=== PATIENT | female | born 1950 | race Caucasian/White ===

== ENCOUNTER 2019-07-25 19:53 | Emergency (ER) | payer MEDICAID ==
[~2019-07-25] VITALS: Ht 165.1 cm; Wt 109.1 kg
--- NOTE | 2019-07-25 20:18 | NUR ---
SPOKE WITH KIM JOE RN AND EMMA SHEETS ABOUT PT FINDINGS DURING TRIAGE. VERBAL ORDER GIVEN BY EMMA FOR CEYX. ORDER PLACED.
[2019-07-25 21:36] LABS: BASOPHILS # (AUTO) 0.1 X10'3 (0-0.2); BASOPHILS % (AUTO) 1.1 % (0-1); EOSINOPHILS # (AUTO) 0.7 X10'3 (0-0.9); EOSINOPHILS % (AUTO) 8.7 % (0-6); HEMATOCRIT 42.7 % (35.0-45.0); HEMOGLOBIN 14.6 g/dl (12.0-16.0); LYMPHOCYTES # (AUTO) 2.2 X10'3 (1.1-4.8); LYMPHOCYTES % (AUTO) 26.4 % (21-51); MEAN CORPUSCULAR HGB CONC 34.1 g/dL (33.0-36.5); MEAN CORPUSCULAR VOLUME 93.7 FL (78-98); MONOCYTES # (AUTO) 0.6 X10'3 (0-0.9); MONOCYTES % (AUTO) 7.2 % (2-12); NEUTROPHILS # (AUTO) 4.8 X10'3 (1.8-7.7); NEUTROPHILS % (AUTO) 56.6 % (42-75); PLATELET COUNT 235 X10'3 (140-440); RED BLOOD COUNT 4.56 X10'6 (4.20-5.60); RED CELL DISTRIBUTION WIDTH 13.2 % (11.5-14.5); WHITE BLOOD COUNT 8.5 X10'3 (4.5-11.0)
[2019-07-25 21:48] LABS: ALANINE AMINOTRANSFERASE 27 U/L (12-78); ALBUMIN 4.1 G/DL (3.4-5.0); ALBUMIN/GLOBULIN RATIO 1.2 (1.1-1.5); ALKALINE PHOSPHATASE 73 IU/L (46-116); ANION GAP 5 (8-16); ASPARTATE AMINO TRANSFERASE 22 U/L (10-37); BILIRUBIN,TOTAL 0.3 MG/DL (0.1-1.0); BLOOD UREA NITROGEN 16 MG/DL (7-18); BUN/CREATININE RATIO 14.7 (6.6-38.0); CALCIUM 9.3 MG/DL (8.5-10.1); CHLORIDE 109 MMOL/L (99-107); CREATININE 1.09 MG/DL (0.40-0.90); GLUCOSE 106 MG/DL (70-104); LIPASE 116 U/L (73-393); POTASSIUM 4.2 MMOL/L (3.5-5.1); SODIUM 145 MMOL/L (135-145); TOTAL CARBON DIOXIDE 30.9 MMOL/L (24-32); TOTAL PROTEIN 7.4 G/DL (6.4-8.2); eGFR 50 ML/MIN
[2019-07-25 23:13] LABS: CLARITY,URINE CLEAR (Clear); COLOR,URINE YELLOW (Yellow); GLUCOSE, URINE NEGATIVE (Neg); KETONES,URINE NEGATIVE (Neg); LEUKOCYTE ESTERASE ,URINE NEGATIVE (Neg); NITRITES, URINE NEGATIVE (Neg); OCCULT BLOOD,URINE NEGATIVE (Neg); PH,URINE 6.5 (4.8-8.0); PROTEIN,URINE NEGATIVE (Neg); UROBILINOGEN,URINE 0.2 E.U/dL (0.2-1.0)
[2019-07-25 23:25] LABS: UA COLLECTION TYPE CLN CATCH MIDSTREAM
[2019-07-26 01:28] VITALS: BP 126/82
== END 2019-07-25 23:48 | disposition home or self-care (01) ==
LOC: ER 19:54
DX: R25.1 Tremor, unspecified (principal); Z88.1 Allergy status to other antibiotic agents
CPT/HCPCS: 36415; 70450; 80053; 81003; 83690; 85025; 85610; 99284

== ENCOUNTER 2020-03-21 17:07 | Emergency (ER) | payer MEDICARE, MEDICAID ==
[~2020-03-21] VITALS: Ht 165.1 cm; Wt 109.0 kg
[~2020-03-21 17:07] MED LIST: HYDR-4383 PO
[2020-03-21] MEDS ORDERED: methylPREDNISolone sod succ 125mg/2ml vial IV ONE (17:35)
[2020-03-21] MEDS ORDERED: fluconazole-Diflucan 100MG/NS 50 ML IV ONE (17:35)
[2020-03-21] MEDS ORDERED: normal saline 1000ML IV soln IVB ONE (17:35)
[2020-03-21 18:18] LABS: BASOPHILS # (AUTO) 0.1 X10'3 (0-0.2); BASOPHILS % (AUTO) 0.9 % (0-1); EOSINOPHILS # (AUTO) 0.3 X10'3 (0-0.9); EOSINOPHILS % (AUTO) 4.5 % (0-6); HEMATOCRIT 43.9 % (35.0-45.0); HEMOGLOBIN 14.9 g/dl (12.0-16.0); LYMPHOCYTES # (AUTO) 1.8 X10'3 (1.1-4.8); LYMPHOCYTES % (AUTO) 27.6 % (21-51); MEAN CORPUSCULAR HEMOGLOBIN 32.2 PG (27.0-31.0); MEAN CORPUSCULAR HGB CONC 33.9 g/dL (33.0-36.5); MEAN PLATELET VOLUME 7.7 FL (7.4-10.4); MONOCYTES # (AUTO) 0.6 X10'3 (0-0.9); MONOCYTES % (AUTO) 8.5 % (2-12); NEUTROPHILS # (AUTO) 3.9 X10'3 (1.8-7.7); NEUTROPHILS % (AUTO) 58.5 % (42-75); PLATELET COUNT 238 X10'3 (140-440); RED BLOOD COUNT 4.61 X10'6 (4.20-5.60); RED CELL DISTRIBUTION WIDTH 13.4 % (11.5-14.5); WHITE BLOOD COUNT 6.7 X10'3 (4.5-11.0)
[2020-03-21 18:33] LABS: ALANINE AMINOTRANSFERASE 44 U/L (12-78); ALBUMIN/GLOBULIN RATIO 1.1 (1.1-1.5); ALKALINE PHOSPHATASE 77 IU/L (46-116); ANION GAP 7 (8-16); ASPARTATE AMINO TRANSFERASE 28 U/L (10-37); BILIRUBIN,TOTAL 0.6 MG/DL (0.1-1.0); BLOOD UREA NITROGEN 11 MG/DL (7-18); BUN/CREATININE RATIO 10.5 (6.6-38.0); CHLORIDE 111 MMOL/L (99-107); CREATININE 1.05 MG/DL (0.40-0.90); GLUCOSE 135 MG/DL (70-104); SODIUM 145 MMOL/L (135-145); TOTAL CARBON DIOXIDE 26.7 MMOL/L (24-32); TOTAL PROTEIN 7.8 G/DL (6.4-8.2); eGFR 52 ML/MIN
[2020-03-21] MEDS ORDERED: FLUC10SU PO (19:16)
[2020-03-21 20:04] VITALS: BP 196/86
== END 2020-03-21 20:15 | disposition home or self-care (01) ==
LOC: ER 17:08
DX: B37.0 Candidal stomatitis (principal); Z90.710 Acquired absence of both cervix and uterus; Z79.899 Other long term (current) drug therapy; Z88.1 Allergy status to other antibiotic agents; Z86.73 Personal history of transient ischemic attack (TIA), and cerebral infarction without residual deficits
CPT/HCPCS: 36415; 71045; 80053; 85025; 93005; 96365; 99285; J1450; J7030

== ENCOUNTER 2020-10-22 12:04 | Emergency (ER) | payer MEDICARE, MEDICAID ==
[~2020-10-22] VITALS: Ht 165.1 cm; Wt 109.1 kg
[2020-10-22 12:38] VITALS: BP 173/86
[2020-10-22] MEDS ORDERED: acetaminophen 325mg tablet PO ONE (14:10)
[2020-10-22] MEDS ORDERED: PRED20TA PO (14:30)
[2020-10-22] MEDS ORDERED: ACET-3067 PO (14:30)
== END 2020-10-22 14:57 | disposition home or self-care (01) ==
LOC: ER 12:05
DX: U07.1 COVID-19 (principal); Z79.2 Long term (current) use of antibiotics; Z79.899 Other long term (current) drug therapy; Z90.710 Acquired absence of both cervix and uterus; Z98.890 Other specified postprocedural states
CPT/HCPCS: 71045; 87635; 99284; C9803

== ENCOUNTER 2021-03-17 09:53 | Emergency (ER) | payer MEDICARE, MEDICAID ==
[~2021-03-17] VITALS: Ht 165.1 cm; Wt 113.6 kg
[2021-03-17 10:02] VITALS: BP 163/116
[2021-03-17 11:37] LABS: BASOPHILS % (AUTO) 0.5 % (0-1); EOSINOPHILS # (AUTO) 0.2 X10'3 (0-0.9); HEMATOCRIT 43.4 % (35.0-45.0); HEMOGLOBIN 14.6 g/dl (12.0-16.0); LYMPHOCYTES # (AUTO) 1.3 X10'3 (1.1-4.8); LYMPHOCYTES % (AUTO) 21.7 % (21-51); MEAN CORPUSCULAR HEMOGLOBIN 32.1 PG (27.0-31.0); MEAN CORPUSCULAR HGB CONC 33.6 g/dL (33.0-36.5); MEAN CORPUSCULAR VOLUME 95.7 FL (78-98); MEAN PLATELET VOLUME 8.5 FL (7.4-10.4); MONOCYTES # (AUTO) 0.4 X10'3 (0-0.9); MONOCYTES % (AUTO) 6.2 % (2-12); NEUTROPHILS # (AUTO) 4.2 X10'3 (1.8-7.7); NEUTROPHILS % (AUTO) 67.6 % (42-75); PLATELET COUNT 253 X10'3 (140-440); RED BLOOD COUNT 4.53 X10'6 (4.20-5.60); RED CELL DISTRIBUTION WIDTH 12.9 % (11.5-14.5); WHITE BLOOD COUNT 6.2 X10'3 (4.5-11.0)
[2021-03-17 11:40] LABS: ALANINE AMINOTRANSFERASE 30 U/L (12-78); ALBUMIN/GLOBULIN RATIO 1.1 (1.1-1.5); ALKALINE PHOSPHATASE 69 IU/L (46-116); ANION GAP 9 (8-16); ASPARTATE AMINO TRANSFERASE 19 U/L (10-37); BILIRUBIN,TOTAL 0.8 MG/DL (0.1-1.0); BLOOD UREA NITROGEN 15 MG/DL (7-18); CALCIUM 9.1 MG/DL (8.5-10.1); CHLORIDE 108 MMOL/L (99-107); CREATININE 0.94 MG/DL (0.40-0.90); GLUCOSE 130 MG/DL (70-104); MAGNESIUM 2.1 MG/DL (1.5-2.4); SODIUM 146 MMOL/L (135-145); TOTAL CARBON DIOXIDE 28.8 MMOL/L (24-32); TOTAL PROTEIN 7.8 G/DL (6.4-8.2); eGFR 59 ML/MIN
[2021-03-17 15:36] LABS: CLARITY,URINE SLIGHTLY CLOUDY (Clear); COLOR,URINE YELLOW (Yellow); GLUCOSE, URINE NEGATIVE (Neg); KETONES,URINE TRACE mg/dl (Neg); NITRITES, URINE NEGATIVE (Neg); OCCULT BLOOD,URINE NEGATIVE (Neg); PROTEIN,URINE NEGATIVE (Neg); UA COLLECTION TYPE CLN CATCH MIDSTREAM
[2021-03-17 15:38] LABS: LEUKOCYTE ESTERASE ,URINE SMALL (Neg); UROBILINOGEN,URINE 0.2 E.U/dL (0.2-1.0)
[2021-03-17 15:56] LABS: SQUAMOUS EPITHELIAL CELL,UR MANY /LPF (FEW)
[2021-03-17 16:01] LABS: STARCH,URINE MODERATE /HPF (NEGATIVE)
[2021-03-17 16:03] LABS: TRANSITIONAL EPI CELLS,URINE FEW /HPF
[2021-03-17 16:04] LABS: BACTERIA,URINE 1+ /HPF (Neg); RBC,URINE NONE SEEN /HPF (0-2); WBC,URINE 0-4 /HPF (0-4)
== END 2021-03-17 16:37 | disposition home or self-care (01) ==
LOC: ER 09:55
DX: R53.1 Weakness (principal); R25.1 Tremor, unspecified; I10 Essential (primary) hypertension; Z90.710 Acquired absence of both cervix and uterus; Z88.1 Allergy status to other antibiotic agents; Z79.899 Other long term (current) drug therapy
CPT/HCPCS: 36415; 80053; 81001; 83735; 84443; 85025; 93005; 99284

== ENCOUNTER 2021-06-12 12:20 | Emergency (ER) | payer MEDICARE, MEDICAID ==
[~2021-06-12] VITALS: Ht 165.1 cm; Wt 109.1 kg
[2021-06-12 13:04] LABS: BASOPHILS % (AUTO) 0.7 % (0-1); EOSINOPHILS # (AUTO) 0.2 X10'3 (0-0.9); EOSINOPHILS % (AUTO) 3.5 % (0-6); HEMATOCRIT 41.7 % (35.0-45.0); HEMOGLOBIN 14.1 g/dl (12.0-16.0); LYMPHOCYTES # (AUTO) 1.6 X10'3 (1.1-4.8); LYMPHOCYTES % (AUTO) 23.7 % (21-51); MEAN CORPUSCULAR HEMOGLOBIN 31.7 PG (27.0-31.0); MEAN CORPUSCULAR HGB CONC 33.8 g/dL (33.0-36.5); MEAN CORPUSCULAR VOLUME 93.9 FL (78-98); MEAN PLATELET VOLUME 7.9 FL (7.4-10.4); MONOCYTES # (AUTO) 0.4 X10'3 (0-0.9); MONOCYTES % (AUTO) 6.5 % (2-12); NEUTROPHILS # (AUTO) 4.4 X10'3 (1.8-7.7); NEUTROPHILS % (AUTO) 65.6 % (42-75); PLATELET COUNT 268 X10'3 (140-440); RED BLOOD COUNT 4.44 X10'6 (4.20-5.60); RED CELL DISTRIBUTION WIDTH 13.4 % (11.5-14.5); WHITE BLOOD COUNT 6.7 X10'3 (4.5-11.0)
[2021-06-12 13:16] LABS: ALANINE AMINOTRANSFERASE 27 U/L (12-78); ALBUMIN 3.7 G/DL (3.4-5.0); ALBUMIN/GLOBULIN RATIO 1.1 (1.1-1.5); ALKALINE PHOSPHATASE 77 IU/L (46-116); ANION GAP 7 (8-16); ASPARTATE AMINO TRANSFERASE 18 U/L (10-37); BILIRUBIN,TOTAL 0.6 MG/DL (0.1-1.0); BLOOD UREA NITROGEN 12 MG/DL (7-18); BUN/CREATININE RATIO 11.3 (6.6-38.0); CALCIUM 8.9 MG/DL (8.5-10.1); CHLORIDE 107 MMOL/L (99-107); CREATININE 1.06 MG/DL (0.40-0.90); GLUCOSE 129 MG/DL (70-104); LIPASE 61 U/L (73-393); POTASSIUM 3.9 MMOL/L (3.5-5.1); SODIUM 142 MMOL/L (135-145); TOTAL PROTEIN 7.2 G/DL (6.4-8.2); eGFR 51 ML/MIN
[2021-06-12 13:21] LABS: CLARITY,URINE SLIGHTLY CLOUDY (Clear); GLUCOSE, URINE NEGATIVE (Neg); KETONES,URINE NEGATIVE (Neg); LEUKOCYTE ESTERASE ,URINE SMALL (Neg); NITRITES, URINE NEGATIVE (Neg); OCCULT BLOOD,URINE NEGATIVE (Neg); PH,URINE 6.5 (4.8-8.0); PROTEIN,URINE NEGATIVE (Neg); UROBILINOGEN,URINE 0.2 E.U/dL (0.2-1.0)
[2021-06-12 13:24] LABS: COLOR,URINE STRAW (Yellow); UA COLLECTION TYPE CLN CATCH MIDSTREAM
[2021-06-12 13:28] LABS: SQUAMOUS EPITHELIAL CELL,UR MANY /LPF (FEW)
[2021-06-12 13:35] LABS: TRANSITIONAL EPI CELLS,URINE MODERATE /HPF
[2021-06-12 13:36] LABS: BACTERIA,URINE 2+ /HPF (Neg)
[2021-06-12 13:38] LABS: RBC,URINE 0-2 /HPF (0-2)
[2021-06-12 21:09] VITALS: BP 164/101
[2021-06-12] MEDS ORDERED: HYDROcodone/acetaminophen 10/325mg tab PO ONE (21:15)
[2021-06-12] MEDS ORDERED: cephalexin 250mg capsule PO ONE (22:15)
[2021-06-12] MEDS ORDERED: CEPH250T PO (22:18)
== END 2021-06-12 23:08 | disposition home or self-care (01) ==
LOC: ER 12:20
DX: N39.0 Urinary tract infection, site not specified (principal); R10.31 Right lower quadrant pain; R11.0 Nausea; R31.9 Hematuria, unspecified; I10 Essential (primary) hypertension; Z90.710 Acquired absence of both cervix and uterus; Z88.1 Allergy status to other antibiotic agents; Z79.2 Long term (current) use of antibiotics; Z79.899 Other long term (current) drug therapy
CPT/HCPCS: 36415; 74176; 80053; 81001; 83690; 85025; 93005; 99285

== ENCOUNTER 2022-12-10 12:27 | Emergency (ER) | payer MEDICARE, MEDICAID ==
[~2022-12-10] VITALS: Ht 165.1 cm; Wt 95.0 kg
[2022-12-10 12:58] LABS: BASOPHILS # (AUTO) 0.1 X10'3 (0-0.2); BASOPHILS % (AUTO) 1.5 % (0-1); EOSINOPHILS # (AUTO) 0.3 X10'3 (0-0.9); EOSINOPHILS % (AUTO) 4.5 % (0-6); HEMATOCRIT 45.1 % (35.0-45.0); HEMOGLOBIN 15.3 g/dl (12.0-16.0); LYMPHOCYTES % (AUTO) 27.3 % (21-51); MEAN CORPUSCULAR HEMOGLOBIN 31.8 PG (27.0-31.0); MEAN CORPUSCULAR HGB CONC 33.9 g/dL (33.0-36.5); MEAN CORPUSCULAR VOLUME 93.8 FL (78-98); MEAN PLATELET VOLUME 8.3 FL (7.4-10.4); MONOCYTES # (AUTO) 0.4 X10'3 (0-0.9); MONOCYTES % (AUTO) 5.9 % (2-12); NEUTROPHILS # (AUTO) 4.5 X10'3 (1.8-7.7); NEUTROPHILS % (AUTO) 60.8 % (42-75); PLATELET COUNT 265 X10'3 (140-440); RED BLOOD COUNT 4.81 X10'6 (4.20-5.60); RED CELL DISTRIBUTION WIDTH 13.4 % (11.5-14.5); WHITE BLOOD COUNT 7.5 X10'3 (4.5-11.0)
[2022-12-10 13:18] LABS: ALANINE AMINOTRANSFERASE 31 U/L (12-78); ALBUMIN 4.2 G/DL (3.4-5.0); ALBUMIN/GLOBULIN RATIO 1.2 (1.1-1.5); ALKALINE PHOSPHATASE 73 IU/L (46-116); ANION GAP 10 (8-16); ASPARTATE AMINO TRANSFERASE 25 U/L (10-37); BILIRUBIN,TOTAL 0.9 MG/DL (0.1-1.0); BLOOD UREA NITROGEN 10 MG/DL (7-18); BUN/CREATININE RATIO 7.8 (10.0-20.0); CALCIUM 9.5 MG/DL (8.5-10.1); CHLORIDE 105 MMOL/L (99-107); CREATININE 1.28 MG/DL (0.40-0.90); GLUCOSE 126 MG/DL (70-104); SODIUM 142 MMOL/L (135-145); TOTAL PROTEIN 7.7 G/DL (6.4-8.2); eGFR 41 ML/MIN
[2022-12-10] MEDS ORDERED: PROP10TA10 PO (14:47)
--- NOTE | 2022-12-10 15:06 | NUR ---
PT'S VISITOR ZOHREHSING AND YELLING AT PATIENT. INFORMED THE VISITOR THAT ITS INAPPROPRIATE AND IF SHE CANT CONTROL HERSELF, SHE WILL BE ASKED TO LEAVE. Addendum: 12/10/22 at 1518 by ROBBIN TATYANA FONTANA AWARE
[2022-12-10 17:15] LABS: CLARITY,URINE CLEAR (Clear); COLOR,URINE STRAW (Yellow); GLUCOSE, URINE NEGATIVE (Neg); KETONES,URINE NEGATIVE (Neg); LEUKOCYTE ESTERASE ,URINE NEGATIVE (Neg); NITRITES, URINE NEGATIVE (Neg); OCCULT BLOOD,URINE NEGATIVE (Neg); PROTEIN,URINE NEGATIVE (Neg); UROBILINOGEN,URINE 0.2 E.U/dL (0.2-1.0)
[2022-12-10 17:20] LABS: UA COLLECTION TYPE CLN CATCH MIDSTREAM
[2022-12-10 18:51] VITALS: BP 183/87
== END 2022-12-10 18:25 | disposition home or self-care (01) ==
LOC: ER 12:27
DX: I10 Essential (primary) hypertension (principal); R25.1 Tremor, unspecified; Z90.49 Acquired absence of other specified parts of digestive tract
CPT/HCPCS: 36415; 71045; 80053; 81003; 83880; 84484; 85025; 93005; 99285

== ENCOUNTER 2022-12-14 20:02 | Emergency (ER) | payer MEDICARE, MEDICAID ==
[~2022-12-14] VITALS: Ht 165.1 cm; Wt 113.6 kg
[~2022-12-14 20:02] MED LIST changes: +PROP10TA10 PO
[2022-12-14 20:20] VITALS: BP 194/80
[2022-12-14 20:32] LABS: BASOPHILS # (AUTO) 0.1 X10'3 (0-0.2); BASOPHILS % (AUTO) 1.2 % (0-1); EOSINOPHILS # (AUTO) 0.5 X10'3 (0-0.9); EOSINOPHILS % (AUTO) 5.6 % (0-6); HEMOGLOBIN 14.8 g/dl (12.0-16.0); LYMPHOCYTES # (AUTO) 2.2 X10'3 (1.1-4.8); LYMPHOCYTES % (AUTO) 26.9 % (21-51); MEAN CORPUSCULAR HEMOGLOBIN 31.3 PG (27.0-31.0); MEAN CORPUSCULAR HGB CONC 33.6 g/dL (33.0-36.5); MEAN CORPUSCULAR VOLUME 93.2 FL (78-98); MEAN PLATELET VOLUME 8.1 FL (7.4-10.4); MONOCYTES # (AUTO) 0.7 X10'3 (0-0.9); MONOCYTES % (AUTO) 8.5 % (2-12); NEUTROPHILS # (AUTO) 4.7 X10'3 (1.8-7.7); NEUTROPHILS % (AUTO) 57.8 % (42-75); PLATELET COUNT 274 X10'3 (140-440); RED BLOOD COUNT 4.72 X10'6 (4.20-5.60); RED CELL DISTRIBUTION WIDTH 13.7 % (11.5-14.5); WHITE BLOOD COUNT 8.1 X10'3 (4.5-11.0)
[2022-12-14 20:40] LABS: ALANINE AMINOTRANSFERASE 32 U/L (12-78); ALBUMIN/GLOBULIN RATIO 1.2 (1.1-1.5); ALKALINE PHOSPHATASE 67 IU/L (46-116); ANION GAP 8 (8-16); ASPARTATE AMINO TRANSFERASE 18 U/L (10-37); BILIRUBIN,TOTAL 0.8 MG/DL (0.1-1.0); BLOOD UREA NITROGEN 16 MG/DL (7-18); CALCIUM 9.3 MG/DL (8.5-10.1); CHLORIDE 105 MMOL/L (99-107); CREATININE 1.23 MG/DL (0.40-0.90); GLUCOSE 108 MG/DL (70-104); POTASSIUM 4.1 MMOL/L (3.5-5.1); SODIUM 144 MMOL/L (135-145); TOTAL CARBON DIOXIDE 30.6 MMOL/L (24-32); TOTAL PROTEIN 7.4 G/DL (6.4-8.2); eGFR 43 ML/MIN
[2022-12-15] MEDS ORDERED: PROP20TA6 PO (01:58)
== END 2022-12-15 02:31 | disposition home or self-care (01) ==
LOC: ER 20:02
DX: I10 Essential (primary) hypertension (principal); F41.9 Anxiety disorder, unspecified; R25.1 Tremor, unspecified; Z90.710 Acquired absence of both cervix and uterus; Z88.1 Allergy status to other antibiotic agents; Z91.041 Radiographic dye allergy status; Z79.1 Long term (current) use of non-steroidal anti-inflammatories (NSAID)
CPT/HCPCS: 36415; 71045; 80053; 83880; 84484; 85025; 93005; 99285

== ENCOUNTER 2023-08-16 10:15 | Emergency (ER) | payer MEDICARE, MEDICAID ==
[~2023-08-16] VITALS: Ht 165.1 cm; Wt 118.2 kg
[~2023-08-16 10:15] MED LIST changes: -PROP10TA10 PO; +PROP20TA6 PO
[2023-08-16 10:26] VITALS: BP 162/67; PULSE 84; RESP 16; TEMP 98.6; O2SAT 96
[2023-08-16] MEDS ORDERED: OFLO5DRO RIGHTEYE (10:32)
== END 2023-08-16 10:51 | disposition home or self-care (01) ==
LOC: ER 10:15
DX: H10.31 Unspecified acute conjunctivitis, right eye (principal); I10 Essential (primary) hypertension; Z90.711 Acquired absence of uterus with remaining cervical stump; Z88.1 Allergy status to other antibiotic agents
CPT/HCPCS: 99283

== ENCOUNTER 2023-10-30 00:16 | Emergency (ER) | payer MEDICARE, MEDICAID | END 2023-10-30 00:31 | disposition left against medical advice (07) | LOC: ER 00:17 | DX: H57.12 Ocular pain, left eye (principal); Z53.21 Procedure and treatment not carried out due to patient leaving prior to being seen by health care provider ==

== ENCOUNTER 2024-08-31 05:03 | Emergency (ER) | payer MEDICARE, MEDICAID ==
[~2024-08-31] VITALS: Ht 165.1 cm; Wt 96.9 kg
[~2024-08-31 05:03] MED LIST changes: +ASPI-1 PO; +ATOR20TA66 PO; +HYDR25TA4 PO; +LOSA50TA64 PO; -PROP20TA6 PO
[2024-08-31 05:19] LABS: BASOPHILS # (AUTO) 0.1 X10'3 (0-0.2); BASOPHILS % (AUTO) 1.2 % (0-1); EOSINOPHILS # (AUTO) 0.6 X10'3 (0-0.9); EOSINOPHILS % (AUTO) 5.5 % (0-6); HEMATOCRIT 44.8 % (35.0-45.0); HEMOGLOBIN 15.5 g/dl (12.0-16.0); LYMPHOCYTES # (AUTO) 3.8 X10'3 (1.1-4.8); MEAN CORPUSCULAR HEMOGLOBIN 32.1 PG (27.0-31.0); MEAN CORPUSCULAR HGB CONC 34.6 g/dL (33.0-36.5); MEAN CORPUSCULAR VOLUME 92.9 FL (78-98); MEAN PLATELET VOLUME 8.3 FL (7.4-10.4); MONOCYTES % (AUTO) 9.2 % (2-12); NEUTROPHILS # (AUTO) 5.1 X10'3 (1.8-7.7); NEUTROPHILS % (AUTO) 48.1 % (42-75); PLATELET COUNT 270 X10'3 (140-440); RED BLOOD COUNT 4.82 X10'6 (4.20-5.60); WHITE BLOOD COUNT 10.6 X10'3 (4.5-11.0)
[2024-08-31 05:46] LABS: ALANINE AMINOTRANSFERASE 21 U/L (12-78); ALBUMIN 4.3 G/DL (3.4-5.0); ALBUMIN/GLOBULIN RATIO 1.1 (1.1-1.5); ALKALINE PHOSPHATASE 84 IU/L (46-116); ANION GAP 9 (8-16); ASPARTATE AMINO TRANSFERASE 16 U/L (10-37); BILIRUBIN,TOTAL 0.9 MG/DL (0.1-1.0); BLOOD UREA NITROGEN 25 MG/DL (7-18); BUN/CREATININE RATIO 21.2 (10.0-20.0); CALCIUM 9.2 MG/DL (8.5-10.1); CHLORIDE 100 MMOL/L (99-107); CREATININE 1.18 MG/DL (0.40-0.90); GLUCOSE 139 MG/DL (70-104); PRO BRAIN NATRIURETIC PEPTIDE 44 PG/ML (0-125); SODIUM 140 MMOL/L (135-145); TOTAL CARBON DIOXIDE 31.3 MMOL/L (24-32); TOTAL PROTEIN 8.2 G/DL (6.4-8.2); eCRCL 38 ML/MIN; eGFR 45 ML/MIN
[2024-08-31 05:56] LABS: POTASSIUM 2.7 MMOL/L (3.5-5.1)
[2024-08-31 07:59] LABS: BILIRUBIN,URINE NEGATIVE (Neg); CLARITY,URINE CLEAR (Clear); COLOR,URINE YELLOW (Yellow); GLUCOSE, URINE NEGATIVE (Neg); KETONES,URINE NEGATIVE (Neg); LEUKOCYTE ESTERASE ,URINE SMALL (Neg); NITRITES, URINE NEGATIVE (Neg); OCCULT BLOOD,URINE NEGATIVE (Neg); PROTEIN,URINE NEGATIVE (Neg); UROBILINOGEN,URINE 0.2 E.U/dL (0.2-1.0)
[2024-08-31 08:01] LABS: UA COLLECTION TYPE CLN CATCH MIDSTREAM
[2024-08-31] MEDS: magnesium sulf-water 2g/50mL 50 ML IV ONE (08:02)
[2024-08-31] MEDS: POTASSIUM CHLORIDE 20 MEQ/15 ML oral solution PO SCH (08:02)
[2024-08-31] MEDS: potassium CL 10mEq/100ml bag 100 ML IV SCH (08:02)
[2024-08-31 08:17] LABS: BACTERIA,URINE 1+ /HPF (Neg); MUCUS STRANDS NONE SEEN /LPF (Neg); RBC,URINE NONE SEEN /HPF (0-2); SQUAMOUS EPITHELIAL CELL,UR MODERATE /LPF (FEW)
[2024-08-31] MEDS ORDERED: POTA-208 PO (10:32)
[2024-08-31 10:38] VITALS: BP 138/65; PULSE 89; RESP 18; TEMP 98.3; O2SAT 96
== END 2024-08-31 10:49 | disposition home or self-care (01) ==
LOC: ER 05:04
DX: R07.89 Other chest pain (principal); E87.6 Hypokalemia; I10 Essential (primary) hypertension; Z86.73 Personal history of transient ischemic attack (TIA), and cerebral infarction without residual deficits; Z88.1 Allergy status to other antibiotic agents; Z90.710 Acquired absence of both cervix and uterus; Z79.82 Long term (current) use of aspirin
CPT/HCPCS: 36415; 71045; 80053; 81001; 83605; 83880; 84145; 84484; 85025; 87040; 87088; 93005; 96365; 96366; 96368; 99285; J3480

== ENCOUNTER 2024-09-29 20:12 | Emergency (ER) | payer MEDICARE, MEDICAID ==
[~2024-09-29] VITALS: Ht 165.1 cm; Wt 101.2 kg
[~2024-09-29 20:12] MED LIST changes: -ASPI-1 PO; +ASPI-1475 PO; +ATOR-2 PO; -ATOR20TA66 PO; +DIPH25TA62 PO; -HYDR-4383 PO; -HYDR25TA4 PO; +HYDR25TA5 PO; -LOSA50TA64 PO; +MENT5.8L12 PO; +POTA-207 PO
--- NOTE | 2024-09-29 20:33 | ELECTROCARDIOGRAPH REPORT ---
[facility] Test Date: 2024-09-29 Test Time: 20:31:26 Pat Name: ALISA BECKWITH Department: [facility]-ER Patient ID: [facility]-[id number] Room: Gender: F Inventory Associate And Driver: JULY LOWE : 1950 Requested By: KEELY KAISER Order Number: [id number] Reading MD: Dr. Keely Kaiser Measurements Intervals [place] Rate: 110 P: 0 [place]: 0 QRS: 56 QRSD: 82 T: -11 QT: 332 QTc: 450 Interpretive Statements Atrial flutter Borderline repolarization abnormality Baseline wander in lead(s) V2 Electronically Signed On 09-29-2024 20:38:[address] Keely Kaiser Please click the below link to view image of tracing.
[2024-09-29 20:38] LABS: BASOPHILS # (AUTO) 0.1 X10'3 (0-0.2); BASOPHILS % (AUTO) 1.1 % (0-1); EOSINOPHILS # (AUTO) 0.6 X10'3 (0-0.9); EOSINOPHILS % (AUTO) 5.4 % (0-6); HEMATOCRIT 39.5 % (35.0-45.0); HEMOGLOBIN 13.8 g/dl (12.0-16.0); LYMPHOCYTES # (AUTO) 2.4 X10'3 (1.1-4.8); LYMPHOCYTES % (AUTO) 23.3 % (21-51); MEAN CORPUSCULAR HGB CONC 34.9 g/dL (33.0-36.5); MEAN CORPUSCULAR VOLUME 91.8 FL (78-98); MEAN PLATELET VOLUME 8.1 FL (7.4-10.4); MONOCYTES # (AUTO) 0.9 X10'3 (0-0.9); MONOCYTES % (AUTO) 8.9 % (2-12); NEUTROPHILS # (AUTO) 6.4 X10'3 (1.8-7.7); NEUTROPHILS % (AUTO) 61.3 % (42-75); PLATELET COUNT 270 X10'3 (140-440); RED CELL DISTRIBUTION WIDTH 13.3 % (11.5-14.5); WHITE BLOOD COUNT 10.4 X10'3 (4.5-11.0)
[2024-09-29 21:05] LABS: ALANINE AMINOTRANSFERASE 29 U/L (12-78); ALBUMIN 4.1 G/DL (3.4-5.0); ALBUMIN/GLOBULIN RATIO 1.4 (1.1-1.5); ALKALINE PHOSPHATASE 76 IU/L (46-116); ANION GAP 8 (8-16); ASPARTATE AMINO TRANSFERASE 24 U/L (10-37); BILIRUBIN,TOTAL 0.7 MG/DL (0.1-1.0); BLOOD UREA NITROGEN 27 MG/DL (7-18); BUN/CREATININE RATIO 15.6 (10.0-20.0); CALCIUM 9.3 MG/DL (8.5-10.1); CHLORIDE 101 MMOL/L (99-107); CREATININE 1.73 MG/DL (0.40-0.90); GLUCOSE 121 MG/DL (70-104); POTASSIUM 3.4 MMOL/L (3.5-5.1); SODIUM 139 MMOL/L (135-145); TOTAL CARBON DIOXIDE 30.5 MMOL/L (24-32); eCRCL 26 ML/MIN; eGFR 29 ML/MIN
[2024-09-29 21:12] LABS: PRO BRAIN NATRIURETIC PEPTIDE 136 PG/ML (0-125)
[2024-09-29 21:50] LABS: MAGNESIUM 1.8 MG/DL (1.5-2.4)
--- NOTE | 2024-09-29 22:01 | Physician Documentation ---
History of Present Illness ~ Chief Complaint: Palpitations Stated Complaint: HIGH HEART RATE Time Seen by MD: 21:08 OK to notify your PCP?: Yes Primary Medical Doctor: ARIEL chauhan Source: patient, family, RN/MD, RN notes reviewed, old records Mode of Arrival: POV Exam Limitations: no limitations HPI 73 year old female with chronic aphasia, discharged from the hospital yesterday after admission for similar, returns to the ED with complaints of rapid heart rate, palpitations, and shortness of breath primarily with walking and exertion. Patient reports her heart rate increases into the 120s when she walks. Patient was admitted to the hospital two days ago for chest pain and possible unstable angina, however patient was unable to tolerate the stress test due to having a panic attack. Hospitalists also ordered MRI but patient was also unable to tolerate this due to anxiety. She does have an outpatient open head MRIs s cheduled. Son reports patient has been taking all of her medications. She was a history of hypertension and stroke. Medication Reconciliation Allergies: Coded Allergies: tetracycline (Unverified Allergy, Mild, 12/14/22) Uncoded Allergies: ERYTHROMYCIN (Allergy, Mild, 07/25/19) Scheduled Aspirin (Aspirin EC), 1 TAB PO DAILY, (Reported) Atorvastatin Calcium (Atorvastatin Calcium), 1 TAB PO DAILY, (Reported) Hydrochlorothiazide (Hydrochlorothiazide), 2 TAB PO DAILY, (Reported) Losartan* (Cozaar*), 1 TAB PO DAILY, (Reported) Discontinued Medications Aspirin (Aspirin), 325 MG PO DAILY Discontinued Reason: patient no longer taking Atorvastatin Calcium (Atorvastatin Calcium), 80 MG PO DAILY Discontinued Reason: patient no longer taking Diphenhydramine Hcl (Benadryl Allergy), 1 TAB PO PRN PRN for allergies, (Repor fox) Discontinued Reason: patient no longer taking Hydrochlorothiazide (Hydrochlorothiazide), 50 MG PO DAILY Discontinued Reason: patient no longer taking Hydrocodone/Acetaminophen (Soso 5-325 Tablet), 1 TAB PO Q12H PRN Discontinued Reason: patient no longer taking Losartan Potassium (Losartan Potassium), 50 MG PO DAILY Discontinued Reason: patient no longer taking Losartan Potassium* (Cozaar*), 2 TAB PO DAILY Discontinued Reason: patient no longer taking Losartan* (Cozaar*), 1 TAB PO DAILY Discontinued Reason: patient no longer taking Losartan* (Cozaar*), 1 TAB PO DAILY, (Reported) Discontinued Reason: patient no longer taking Menthol ([place]), 1 ALFONSO PO Q2H PRN for cough, (Reported) Discontinued Reason: patient no longer taking Potassium Chloride (Potassium Chloride), 1 TAB PO DAILY Discontinued Reason: patient no longer taking Potassium Chloride* (K-Dur*), 1 TAB PO DAILY, (Reported) Discontinued Reason: patient no longer taking Propranolol Hcl (Propranolol Hcl), (Reported) Discontinued Reason: patient no longer taking Past Medical History 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 Physical Exam Vital Signs: RN Vital Signs have been reviewed: Yes, Temperature: 98.5, Heart Rate: 109, Respiratory Rate: 14, BP: 138/73, Pulse Oximetry: 96, Weight: 101.200 Oxygen Flow Rate: 0 Pulse Oximetry Reflects: adequate oxygenation Physical Exam General: The patient is well developed, well nourished, nontoxic appearing and is in no acute distress. Skin: [place], warm and dry with no rashes. HEENT: Head was normocephalic and atraumatic. Chest: Clear to auscultation bilaterally without wheezes, rales or rhonchi. No accessory muscle use. No dullness to percussion. Heart: Regular rhythm, rapid rate. S1, S2. No murmurs. Palpation of the chest wall was normal. No rubs or thrills. Abdomen: Soft, nontender and nondistended. Positive bowel sounds. No guarding or rebound. Extremities: No cyanosis, clubbing or edema. The patient moves all extremities. Pulses were equal and symmetric. Neurologic: Resting tremor. Aphasia (chronic). A & O x4. Moves all four extremities. Psychologic: Normal mood and affect. No agitation. Progress Progress Note 2201: Hospitalist paged. 2240: Case discussed with internal medicine resident, who agrees to evaluate the patient for admission. 2330: When speaking with admitting team, patient must denying chest pain and shortness of breath. When ambulated, however, her heart rate jumps to 130 but has normal oxygen saturation. Results/Orders Results/Orders Orders - KEELY PARKER MD Chest,Single View (09/29/24 20:23) Monitor (09/29/24 20:23) Saline Lock (09/29/24 20:23) Oxygen (09/29/24 20:23) Electrocardiogram (09/29/24 20:23) Hs Troponin I W Calculations (09/29/24 23:23) Page Hospitalist (09/29/24 22:01) Fill Out Med Reconciliation (09/29/24 22:01) Completed Orders - KEELY PARKER MD Chest,Single View (09/29/24 20:23) Cbc/Diff (09/29/24 20:23) PBNP (09/29/24 20:23) Electrocardiogram (09/29/24 20:23) CMP (09/29/24 20:23) Hs Troponin I W Calculations (09/29/24 20:23) Hs Troponin I W Calculations (09/29/24 22:23) Magnesium Sulf-Water 2g/50ml (Magnesium (09/29/24 21:40) Potassium Cl Sr Tablet (K-Dur Tablet) (09/29/24 21:40) Potassium Cl 10meq/100ml Bag (Potassium (09/29/24 21:40) MG (09/29/24 20:29) Vital Signs 09/29/24 09/29/24 09/30/24 09/30/24 20:24 20:45 00:43 01:49 Temp 98.5 98.5 Pulse 109 56 94 Resp 16 14 13 16 B/P (MAP) 138/73 169/69 (102) 141/62 Pulse Ox 96 98 O2 Flow Rate 0 0 Laboratory Tests Test 09/29/24 20:29 09/29/24 22:20 White Blood Count 10.4 Red Blood Count 4.30 Hemoglobin 13.8 Hematocrit 39.5 Mean Corpuscular Volume 91.8 Mean Corpuscular Hemoglobin 32.0 H Mean Corpuscular Hemoglobin Concent 34.9 Red Cell Distribution Width 13.3 Platelet Count 270 Mean Platelet Volume 8.1 Neutrophils (%) (Auto) 61.3 Lymphocytes (%) (Auto) 23.3 Monocytes (%) (Auto) 8.9 Eosinophils (%) (Auto) 5.4 Basophils (%) (Auto) 1.1 H Neutrophils # (Auto) 6.4 Lymphocytes # (Auto) 2.4 Monocytes # (Auto) 0.9 Eosinophils # (Auto) 0.6 Basophils # (Auto) 0.1 CBC Comment Sodium Level 139 Potassium Level 3.4 L Chloride Level 101 Carbon Dioxide Level 30.5 Anion Gap 8 Blood Urea Nitrogen 27 H Creatinine 1.73 H Estimated GFR/1.73 m2 29 BUN/Creatinine Ratio 15.6 Glucose Level 121 H Calcium Level 9.3 Magnesium Level 1.8 Total Bilirubin 0.7 Aspartate Amino Transf (AST/SGOT) 24 Alanine Aminotransferase (ALT/SGPT) 29 Alkaline Phosphatase 76 Troponin I High Sensitivity 9 9 Troponin I High Sens Percent Delta 10 0 Troponin I Hi Sens Absolute Change -1 0 Pro-B-Type Natriuretic Peptide 136 H Total Protein 7.0 Albumin 4.1 Globulin 2.9 Albumin/Globulin Ratio 1.4 Chemistry Comments Re-Evaluation Re-Evaluation : Re-Evaluation: Unchanged Additional Comment This patient has presented with multiple versions of her chief complaint. She is very anxious has an underlying psychiatric issue. Patient was worked up for tremor and unstable angina except patient was unable to tolerate an MRI nor was she will to tolerate a stress test. Patient tells me she takes a few steps becomes very short of breath exhausted having chest discomfort later when she was ambulating she did develop tachyarrhythmia from a heart rate of 100 going to 130 but her oxygenation remained stable she denied any chest pain during that process. Patient is having arrhythmias of sort possible unstable angina but is not cooperative with standard workups making this very challenging. Discussed the case with the family. Patient will follow up with Cardiology for possible Holter monitor and outpatient workup. Patient may need a cardiac catheterization based on her evaluation with her outside installation machinist. I had the hospitalist talk to the patient for possible admission and what that entailed but ultimately the patient will receive an outpatient workup. Patient's electrolytes were slightly off and were supplemented both potassium and magnesium. Cardiac continuous monitoring showed sinus tachycardia heart rate 100s to 130s, abnormal, my interpretation. Pulse oximetry monitor interpretation shows normal oxygenation at 97% room air, normal, my interpretation. 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 Keely Parker Measurements Intervals [place] Rate: 110 P: 0 [place]: 0 QRS: 56 QRSD: 82 T: -11 QT: 332 QTc: 450 Interpretive Statements Atrial flutter Borderline repolarization abnormality Baseline wander in lead(s) V2 Electronically Signed On 09-29-2024 20:38:[address] Keely Parker (interpreted by me) Chest X-Ray : Additional Comments Clinical History CP Comparison CXR on 09/26/2024, 1 images. Technique: A single AP/PA chest radiograph was provided for review. Without Contrast ALISA BECKWITH, [id number] FINDINGS: Lungs: Hypoexpanded lungs without pneumothorax, focal consolidation, pleural effusion or mass. hazy densities at the right lung base may represent atelectasis/scarring vs infiltrates. Heart: Normal in size and configuration. Mediastinum: Within normal limits. Vasculature: Within normal limits. Tubes/lines: None. Osseous structures: No evidence for acute fracture. IMPRESSION: Low lung volumes. Unremarkable mediastinum. Normal pulmonary vasculature. hazy densities at the right lung base may represent atelectasis/scarring vs infiltrates. This report was electronically signed by Michael Tucker MD on 09/29/2024 11:27:23 PM. reviewed by md, Dr. Parker. Medical Decision Making Additional info obtained from: old records (see HPI) Differential Dx:Considerations: Include: angina / IL, atrial dysrhythmia, atrial fibrillation, atrial flutter, MAT, PACs, PSVT, sinus tachycardia, WPW, 1st degree AV block, 2nd degree AVB-type 1, 2nd degree AVB-type 2, 3rd degree AV block, PVCs, torsades de pointes, ventricular fibrillation, ventricular tachycardia, other Differential Dx:Considerations: Include anxiety/panic attack, Include digoxin toxicity, Include electrolyte disorder, Include heart failure, Include hyperthyroidism, Include hyperventilation, Include hypoxia, Include pacemaker malfunction, Include pulmonary embolus, Include renal failure, Include other Departure Time of Disposition: 23:32 Disposition: 01 HOME / SELF CARE / HOMELESS Admission Level of Care: PCU with Tele Impression: Primary Impression: Tachyarrhythmia Additional Impressions: Palpitations Hypokalemia Anxiety Tremor Condition: Stable Discharge Instructions: Hypokalemia, Palpitations, [id number] Additional Instructions: Follow up with your regular doctor and Dr. Lowell Tubbs, outside installation machinist. Take all your normal medications. Take potassium as prescribed. Return to the ER for any other concerns. Referrals: CLAUDETTE TUBBS MD Education Educated: Patient, Family Educated regarding: diagnosis, treatment Signature Scribe Signature: Scribed for Keely Parker MD by Abel Silva . 09/29/24 22:05 Attestation: The note accurately reflects work and decisions made by me.Keely Parker MD 09/29/24 22:01 KEELY PARKER MD September 29, 2024 22:01 ABEL MORELAND September 29, 2024 22:12
[2024-09-29] MEDS ORDERED: LOSA-415 PO (23:09)
[2024-09-29] MEDS ORDERED: LOSA-416 PO ×2 (23:10→23:13)
[2024-09-29] MEDS: potassium Cl 20 mEq SR tablet PO ONE (23:29)
--- NOTE | 2024-09-29 23:30 | RADIOLOGY REPORT ---
Clinical History CP Comparison CXR on 09/26/2024, 1 images. Technique: A single AP/PA chest radiograph was provided for review. Without Contrast ALISA BECKWITH, [id number] FINDINGS: Lungs: Hypoexpanded lungs without pneumothorax, focal consolidation, pleural effusion or mass. hazy densities at the right lung base may represent atelectasis/scarring vs infiltrates. Heart: Normal in size and configuration. Mediastinum: Within normal limits. Vasculature: Within normal limits. Tubes/lines: None. Osseous structures: No evidence for acute fracture. IMPRESSION: Low lung volumes. Unremarkable mediastinum. Normal pulmonary vasculature. hazy densities at the right lung base may represent atelectasis/scarring vs infiltrates. This report was electronically signed by Michael Tucker MD on 09/29/2024 11:27:23 PM.
[2024-09-29] MEDS: potassium CL 10mEq/100ml bag 100 ML IV ONE (23:38)
[2024-09-29] MEDS: magnesium sulf-water 2g/50mL 50 ML IV ONE (23:41)
[2024-09-30 00:43] VITALS: TEMP 98.5; O2SAT 98
[2024-09-30 01:49] VITALS: BP 141/62; PULSE 94; RESP 16
== END 2024-09-30 01:50 | disposition home or self-care (01) ==
LOC: ER 20:13
DX: R00.0 Tachycardia, unspecified (principal); R00.2 Palpitations; R25.1 Tremor, unspecified; I10 Essential (primary) hypertension; F41.9 Anxiety disorder, unspecified; F41.0 Panic disorder [episodic paroxysmal anxiety]; E87.6 Hypokalemia; Z86.73 Personal history of transient ischemic attack (TIA), and cerebral infarction without residual deficits; Z88.1 Allergy status to other antibiotic agents; Z90.710 Acquired absence of both cervix and uterus; Z79.82 Long term (current) use of aspirin; Z79.899 Other long term (current) drug therapy
CPT/HCPCS: 36415; 71045; 80053; 83735; 83880; 84484; 85025; 93005; 96365; 96368; 99285; J3480

== ENCOUNTER 2025-05-02 21:34 | Emergency (ER) | payer MEDICARE, MEDICAID ==
[~2025-05-02] VITALS: Ht 165.1 cm; Wt 98.6 kg
[~2025-05-02 21:34] MED LIST changes: +CLOP75TA34 PO; +DEUT6TAB PO; -DIPH25TA62 PO; -HYDR25TA5 PO; +LORA10TA7 PO; +LOSA1TAB36 PO; -MENT5.8L12 PO; +METO-539 PO; -POTA-207 PO
--- NOTE | 2025-05-02 22:03 | ELECTROCARDIOGRAPH REPORT ---
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
[2025-05-02 22:11] LABS: MEAN PLATELET VOLUME 8.1 FL (7.4-10.4); RED CELL DISTRIBUTION WIDTH 12.6 % (11.5-14.5)
[2025-05-02 22:27] LABS: CREATININE 1.25 MG/DL (0.40-0.90); PRO BRAIN NATRIURETIC PEPTIDE 148 PG/ML (0-450); TOTAL CARBON DIOXIDE 28.7 MMOL/L (24-32); eCRCL 35 ML/MIN; eGFR 42 ML/MIN
--- NOTE | 2025-05-02 23:28 | RADIOLOGY REPORT ---
EXAM: DI CHEST,SINGLE VIEW TECHNIQUE: Single frontal chest radiograph CLINICAL HISTORY: CP COMPARISON: DI CHEST,SINGLE VIEW on DOS: 01/24/25, DI CHEST,SINGLE VIEW on DOS: 09/29/24, DI CHEST,SINGLE VIEW on DOS: 09/26/24, DI CHEST,SINGLE VIEW on DOS: 08/31/24, DI CHEST,SINGLE VIEW on DOS: 08/18/24 FINDINGS/IMPRESSION: The lungs are clear. The cardiomediastinal silhouette is unremarkable. No pleural effusion or pneumothorax. No acute osseous abnormality. Possible loop recorder projects over the left lower thorax, clinical correlation is suggested.
--- NOTE | 2025-05-02 23:29 | Physician Documentation ---
History of Present Illness ~ Chief Complaint: Chest Pain Stated Complaint: CHEST PAIN Time Seen by MD: 22:20 Primary Medical Doctor: [facility] dr chauhan Mode of Arrival: POV, Ambulatory HPI Patient presents to the emergency room with left-sided chest pain that she describes as a twinge. No relieving or exacerbating factors. Only happens briefly. She was seen here this past August or nuclear medicine test was performed which was nondiagnostic. She states she did follow up once discharged with Cardiology in his told that she would not have to be seen again for another year (August). No current chest pain Medication Reconciliation Allergies: Coded Allergies: tetracycline (Unverified Allergy, Mild, 12/14/22) Uncoded Allergies: ERYTHROMYCIN (Allergy, Mild, 07/25/19) Scheduled Aspirin (Aspirin EC), 1 TAB PO DAILY, (Reported) Atorvastatin Calcium (Atorvastatin Calcium), 1 TAB PO DAILY, (Reported) Clopidogrel Bisulfate (Clopidogrel), 75 MG PO DAILY Deutetrabenazine (Austedo), 1 TAB PO Q12H Loratadine (Loratadine), 10 MG PO DAILY Losartan/Hydrochlorothiazide (Losartan-Hctz 50-12.5 Mg Tab), 1 TAB PO DAILY, (Reported) Metoprolol Succinate* (Toprol Xl*), 1 TAB PO DAILY, (Reported) Past Medical History 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 Eyes: Conjunctival normal. EOMI. PERRL. ENT: Mucous membranes moist. Neck: Supple, trachea is midline. Chest: Clear to auscultation bilaterally without rales, rhonchi, or wheezes. There is no accessory muscle use or retractions. Cardiac: RRR without murmurs, gallops, or rubs. Abd: Soft, nondistended, nontender, with normoactive bowel sounds. No guarding, rebound, or rigidity. Progress Results/Orders Results/Orders Orders - BRADEN GRAVES MD Chest,Single View (05/02/25 22:25) Monitor (05/02/25 22:02) Saline Lock (05/02/25 22:02) Oxygen (05/02/25 22:02) Hs Troponin I W Calculations (05/03/25 00:02) Hs Troponin I W Calculations (05/03/25 01:02) Completed Orders - BRADEN GRAVES MD Chest,Single View (05/02/25 22:25) Cbc/Diff (05/02/25 22:02) BMP (05/02/25 22:02) PBNP (05/02/25 22:02) Electrocardiogram (05/02/25 22:02) Hs Troponin I W Calculations (05/02/25 22:02) Vital Signs 05/02/25 05/02/25 05/02/25 05/02/25 21:46 22:15 22:15 22:44 Temp 99.0 Pulse 85 77 69 Resp 16 17 16 18 B/P (MAP) 146/83 162/69 (100) 148/69 (95) Pulse Ox 94 97 99 O2 Flow Rate 0 0 Laboratory Tests Test 05/02/25 21:43 White Blood Count 6.7 Red Blood Count 3.95 L Hemoglobin 12.3 Hematocrit 36.7 Mean Corpuscular Volume 92.9 Mean Corpuscular Hemoglobin 31.3 H Mean Corpuscular Hemoglobin Concent 33.7 Red Cell Distribution Width 12.6 Platelet Count 245 Mean Platelet Volume 8.1 Neutrophils (%) (Auto) 57.1 Lymphocytes (%) (Auto) 27.0 Monocytes (%) (Auto) 7.2 Eosinophils (%) (Auto) 7.8 H Basophils (%) (Auto) 0.9 Neutrophils # (Auto) 3.8 Lymphocytes # (Auto) 1.8 Monocytes # (Auto) 0.5 Eosinophils # (Auto) 0.5 Basophils # (Auto) 0.1 CBC Comment Sodium Level 144 Potassium Level 4.0 Chloride Level 110 H Carbon Dioxide Level 28.7 Anion Gap 5 L Blood Urea Nitrogen 23 H Creatinine 1.25 H Estimated GFR/1.73 m2 42 BUN/Creatinine Ratio 18.4 Glucose Level 95 Calcium Level 8.8 Troponin I High Sensitivity 5 Pro-B-Type Natriuretic Peptide 148 Albumin 4.0 Chemistry Comments EKG/XRAY/CT/US/VASC/MRI EKG : Additional Comment EKG interpreted by myself shows time of 06/20/2043, rate 88, sinus rhythm, normal axis, no ST changes Abdominal X-Ray : Additional Comment One view chest x-ray interpreted by myself is negative for effusions or in filtrates and has a normal cardiac silhouette Medical Decision Making Additional information obtaine: old records Findings Patient presents to the emergency room with left-sided chest pain as per HPI. Differentials include but are not limited to ACS, pulmonary embolism, aortic pathology, musculoskeletal pain, GERD therefore emergent labs and imaging indicated. Chest x-ray is reassuring. No current symptoms he had not believe patient is suffering from acute aortic pathology or pulmonary embolism. Although patient has not elevated heart score of four patient's pain is atypi eun. She has seen a lead nurse with a stress test this past year that has told she would have to be seen till August. At this time I feel patient is safe for discharge with ER precautions discussed. I do not feel patient requires 2nd troponin given time of onset. Heart Score: 4 Differential Dx:Considerations: Include: angina, aortic dissection, chest wall pain, cholelithiasis, CHF, costochondritis, esophageal reflux/spasm, gastritis, herpes zoster, myocardial infarction, pericarditis, pleuritis, pancreatitis, pneumonia, pneumothorax, pulmonary embolus, other Departure Disposition: HOME / SELF CARE / HOMELESS Impression: Primary Impression: Chest pain Condition: Stable Discharge Instructions: Nonspecific Chest Pain, Adult Referrals: NO PRIMARY CARE PROVIDER (PCP) Signature Scribe Signature: No scribe Attestation: The note accurately reflects work and decisions made by me.Braden Graves MD 05/02/25 23:28 BRADEN GRAVES MD May 02, 2025 23:29
[2025-05-02 23:35] VITALS: BP 134/70; PULSE 80; RESP 16; TEMP 98.1; O2SAT 99
== END 2025-05-02 23:55 | disposition home or self-care (01) ==
LOC: ER 21:35
DX: R07.89 Other chest pain (principal); R06.02 Shortness of breath; I10 Essential (primary) hypertension; Z86.73 Personal history of transient ischemic attack (TIA), and cerebral infarction without residual deficits; Z88.1 Allergy status to other antibiotic agents; Z90.710 Acquired absence of both cervix and uterus; Z79.82 Long term (current) use of aspirin
CPT/HCPCS: 36415; 71045; 80048; 83880; 84484; 85025; 93005; 99285